=== PATIENT | male | born 1970 | race Two or more races ===

== ENCOUNTER 2025-03-10 11:10 | Emergency (ER) | payer OTHER ==
[~2025-03-10] VITALS: Ht 175.3 cm; Wt 104.3 kg
[2025-03-10] MEDS ORDERED: TAMS0.4C PO (11:39)
[2025-03-10] MEDS ORDERED: ZESTORETIC 20-1 EAC1 PO (11:39)
[2025-03-10] MEDS ORDERED: [UNRECOGNIZED DRUG - OTHER] (11:40)
[2025-03-10 13:30] LABS: BASO % 0.6 % (0.1-1.2); EOS # 0.14 (0.04-0.54); EOS % 1.5 % (0.7-7.0); LYMPH # 1.24 (1.18-3.74); LYMPH % 13.2 % (19.3-53.1); MEAN PLATELET VOLUME 9.50 fl (9.4-12.4); MONO # 0.81 (0.24-0.82); MONO % 8.6 % (4.7-12.5); NEUT # 7.01 (1.56-6.13); NEUT % 74.9 % (34.0-71.1); RED CELL DISTRIBUTION WIDTH 13.6 % (11.6-14.4)
[2025-03-10 13:57] LABS: URINE APPEARANCE Clear; URINE BILIRRUBIN Negative (NEGATIVE); URINE BLOOD Negative; URINE COLOR Yellow; URINE GLUCOSE Negative (NEGATIVE); URINE KETONE Negative (NEGATIVE); URINE LEUKOCYTE Negative; URINE NITRATE Negative; URINE PROTEIN Negative (NEGATIVE); URINE UROBILINOGEN 0.2 E.U./dl
[2025-03-10 13:59] LABS: URINE RBC 7.9 uL (0.0-20.8)
[2025-03-10 14:05] LABS: URINE BACTERIA 2.4 uL (0.0-1933); URINE CAST 0.00 uL (0.0-1.40); URINE EPITHELIAL CELLS 0.3 uL (0.0-38.8); URINE WBC 0.4 uL (0.0-23.2)
[2025-03-10 14:07] LABS: ALT/SGPT 28.0 U/L (12-78); AST/SGOT 21.0 U/L (15-37); BILIRUBIN TOTAL 0.35 mg/dL (0.3-1.2); BUN CREA RATIO 16.0 (7.0-25.0); CREATININE SERUM 0.91 mg/dL (0.70-1.30); GFR 87.15; GLOBULINA 3.7 G/DL (2.4-3.5); GLUCOSE FASTING 185.0 mg/dL (65-100); OSMOLALITY SERUM 279.0 MOSM/KG (275-295)
== END 2025-03-10 14:35 | disposition home or self-care (01) ==
LOC: ER 11:32
PROVIDERS: General Practice
DX: I73.89 Other specified peripheral vascular diseases (principal); Z88.0 Allergy status to penicillin